=== PATIENT | female | born 1960 | race Caucasian/White ===

== ENCOUNTER 2023-08-07 17:03 | Emergency (ER) | payer BC, SELFPAY ==
[2023-08-07 17:12] VITALS: BP 136/79
[2023-08-07 18:29] LABS: % Basophils 0.6 % (0-2); % Eosinophils 0.8 % (0-6); % Immature Granulocytes 0.2 % (0-0.5); % Lymphocytes 30.6 % (20.5-51.1); % Monocytes 9.8 % (1.7-9.3); Absolute Lymphocytes 1.5 10^3/uL (1.2-3.4); Absolute Monocytes 0.5 10^3/uL (0.1-0.6); Absolute Neutrophils 2.8 10^3/uL (1.4-6.5); Hematocrit 40.5 % (37.0-47.0); Mean Corp Hgb Conc. 34.6 g/dL (33.0-37.0); Mean Corpuscular Hgb 31.7 pg (27.0-31.0); Mean Corpuscular Volume 91.6 fL (81.0-99.0); Mean Platelet Volume 10.2 fL (7.4-10.4); Nucleated Red Blood Cells % 0 %; Platelet Count 186 10^3/uL (130-400); Red Blood Cell Count 4.42 10^6/uL (4.20-5.40); Red Cell Dist. Width 12.4 % (11.5-14.5); White Blood Cell Count 4.8 10^3/uL (4.8-10.8)
[2023-08-07 18:43] LABS: ALT (SGPT) 18 U/L (0-35); AST (SGOT) 29 U/L (14-36); Albumin 4.3 g/dl (3.5-5.0); Alkaline Phosphatase 110 U/L (38-126); Blood Urea Nitrogen 22 mg/dl (7-17); Calcium 9.8 mg/dl (8.4-10.2); Carbon Dioxide 28 mmol/L (22-30); Chloride 101 mmol/L (98-107); Glucose 106 mg/dl (70-99); Potassium 4.2 mmol/L (3.5-5.1); Sodium 137 mmol/L (135-145); Total Bilirubin 0.4 mg/dl (0.2-1.3); Total Protein 6.8 g/dl (6.3-8.2); eGFR > 60.00
[2023-08-07 18:54] LABS: Troponin I < 0.012 ng/ml
--- NOTE | 2023-08-07 19:32 | ED.GENMED ---
History of Present Illness
General
Chief Complaint: Breathing Problem
Source: patient
Time Seen by Provider: 08/07/23 18:33
Travel History
Have you had any contact with someone who has COVID-19?: No
Do you have any symptoms of coronavirus? Fever > 100 degrees, chills, cough, shortness of breath, sore throat, loss of taste or smell, muscle aches, or headache?: Yes
Symptoms:: SOB
History of Present Illness
History of Present Illness:
62-year-old female with past medical history of asthma, hyperlipidemia, mild coronary artery disease and known left carotid plaque which she states is just monitored by her licensed appraiser presents to the ER for evaluation of shortness of breath that
has gotten progressively worse over the last week stating that she seems to be more exertionally dyspneic so she went to the urgent care today thinking it was her asthma and that she needed a nebulizer treatment and some steroids but was sent to the
ER for further evaluation and was not given any medications at the urgent care. Patient did have a chest x-ray done and was told that the chest x-ray was unremarkable. She denies any fevers, cough, palpitations, diaphoresis, lower extremity edema,
pleurisy, hemoptysis. Patient does have a family member who has antiphospholipid syndrome as well as her mother from a CVA. Patient does take an 81 mg aspirin and statin which she reports good compliance with. No other concerns at this time.
Past History
Past History
ED Past Medical History: Asthma, CAD and Hypercholesterolemia
ED Past Surgical History: Orthopedic and Other
Social History
Tobacco: Former smoker
Alcohol: None
Drug: None
Personal:
Living: with family
Review of Systems
Review of Systems
All Other Systems: ROS reviewed and negative except as documented in HPI and ROS
Phy Exam
Physical Exam
Physical Exam:
GENERAL: Alert , in no apparent distress
EYE: conjunctiva clear
NECK: Supple
ENT: o/p clr, mmm.
CARDIAC: Regular rate and rhythm
LUNGS: Clear breath sounds bilaterally, no acute respiratory distress, no wheezes/rales/rhonchi, speaking in full sentences without any dyspnea
NEUROLOGICAL: Alert and oriented
SKIN: Warm and dry, skin intact.
MUSCULOSKELETAL: well perfused. No edema
PSYCH: Normal and appropriate interaction.
Scores
Heart Failure Risk
Heart Failure Risk Score: Not Applicable
Heart Score for Chest Pain Patients
STEMI patient?: Not applicable
Withdrawal Assessment of Alcohol
Withdrawal Assessment Completed?: Not applicable
Course
Orders/Labs/Results
Orders:
Orders
08/07/23 17:19
Electrocardiogram (*1) Urgent
Reason for Study: Shortness of Breath
EKG- Treatment ONCE
08/07/23 18:24
Complete Blood Count/With Diff Urgent
Comprehensive Metabolic Panel Urgent
NT-proBNP Urgent
Comment: ADD ON
Troponin I Urgent
08/07/23 18:35
Add On- LAB Urgent
Tests Added?: Pro-BNP
08/07/23 19:11
D-Dimer Urgent
08/07/23 20:01
CT Chest Pe Study Urgent
Comment:
Reason For Exam: elevated d-dimer, SOB
Abnormal Lab Results
08/07/23 08/07/23
18:24 19:11
MCH 31.7 H pg
(27.0-31.0)
Monocytes % 9.8 H %
(1.7-9.3)
D-Dimer 0.61 H ug/mlFEU
(0.00-0.50)
BUN 22 H mg/dl
(7-17)
Glucose 106 H mg/dl
(70-99)
08/07/23 18:24
08/07/23 18:24
Vital Signs
Initial and Last Documented VS:
Initial Vital Signs
Temp Pulse Resp BP Pulse Ox
98.7 F 72 18 136/79 100
08/07/23 17:12 08/07/23 17:12 08/07/23 17:12 08/07/23 17:12 08/07/23 17:12
Last Documented Vital Signs
Temp Pulse Resp BP Pulse Ox
98.7 F 70 23 146/82 96
08/07/23 17:12 08/07/23 22:00 08/07/23 22:00 08/07/23 21:58 08/07/23 22:00
MDM/Problems Addressed
Differential Diagnosis Includes:
Viral syndrome, seasonal allergies, asthma/asthma variant cough, PE, pneumonia
MDM/Problems Addressed:
62-year-old female presenting to the emergency department for evaluation at the request of local urgent care for shortness of breath. Patient states that her symptoms seem to be more exertional. Urgent care did an x-ray which was reportedly
unremarkable. Lab work was initiated from triage and is also largely unremarkable. I did add on a BNP as well as D-dimer. Will order CTA of chest if D-dimer positive. Patient does have an echocardiogram scheduled for this coming Monday with
her cardiology group. Anticipate discharge home pending remaining workup.
Chronic conditions affecting care: CAD
*Radiology
Radiology exam reviewed: radiology read reviewed
*Pulse Oximetry
Patient hypoxic: no
*EKG
Interpreted by ED Provider?: Yes
Comparison EKG: no comparison EKG present
Heart Rate: 58
Rate: bradycardiac
Rhythm: sinus arrhythmia
[place]: normal axis
Ischemia: no ischemia
*Road Supervisor Interpretation
Rate: normal
Rhythm: sinus
*Critical Care Note
Total Time (30-74mins, 75-104mins- exclusive of procedures): Not Applicable
Comment
Comment:
Patient's D-dimer came back positive. CTA of the chest was ordered. Patient remains stable.
Patient Management
Escalation/DeEscalation of care consider admission/obs:
Patient CT is negative for any pulmonary embolism. There are no other findings on the CTA of the chest. Patient is ultimately stable for discharge home. She remains hemodynamically stable in no acute respiratory distress. She will follow-up with
her primary care provider and licensed appraiser. Aware of return precautions to the emergency department.
ED Attending Note
-
Portions of this chart may have been created with voice recognition software.� Occasional wrong word or��sound alike� substitutions may have occurred due to the inherent limitations of voice recognition software.
Discharge Plan
Departure
Patient Disposition: Home (Routine Discharge)
Date of Disposition: 08/07/23
Time of Disposition: 22:02
Patient with high blood pressure during this ER visit?: No
Discharge Problem:
Shortness of breath
Instructions: Shortness of Breath (Dyspnea) (DC)
Referrals:
Rita Kohli MD [Family Provider] -
Interventions
Interventions:
*Risk Screen - Suicide Last Done: 08/07/23 17:17
*General Assessment Last Done: 08/07/23 17:17
*Neglect/Abuse Screening Last Done: 08/07/23 17:17
ED- Fall Risk Assessment Last Done: 08/07/23 18:00
*Nursing Disposition Last Done: 08/07/23 22:17
ED- Cardiac Assessment Last Done: 08/07/23 18:00
ED- Pulmonary Assessment Last Done: 08/07/23 18:00
Discharge Date and Time
Discharge Date/Time: 08/07/23 22:17
Print Language: YAKUT
[2023-08-07 19:34] LABS: NT-proBNP < 20.0 pg/ml
[2023-08-07 19:46] LABS: D-Dimer 0.61 ug/mlFEU (0.00-0.50)
[2023-08-07 21:58] VITALS: BP 146/82
== END 2023-08-07 22:17 | disposition home or self-care (01) ==
LOC: EMR 17:03
PROVIDERS: Physician Assistant Medical; EMERGENCY PHYSICIAN Emergency Medicine; FAMILY PHYSICIAN Internal Medicine
DX: R06.02 Shortness of breath (principal); Z87.891 Personal history of nicotine dependence
CPT/HCPCS: 99285; 71275; 80053; 83880; 84484; 85025; 85379; 93005; Q9967